=== PATIENT | female | born 1970 | race Two or more races ===

== ENCOUNTER 2022-09-02 06:04 | Day surgery (SDC) | payer OTHER ==
[~2022-09-02] VITALS: Ht 162.6 cm; Wt 63.5 kg
== END 2022-09-02 15:30 | disposition home or self-care (01) ==
LOC: CIR.AMB 06:04
PROVIDERS: ATTEND Surgery
DX: D05.12 Intraductal carcinoma in situ of left breast (principal); N62 Hypertrophy of breast; N64.81 Ptosis of breast; R59.0 Localized enlarged lymph nodes; Z20.822 Contact with and (suspected) exposure to COVID-19
CPT/HCPCS: 19301; 38525; 38792; 19281; 19318; L8600